=== PATIENT | female | born 1950 | race Caucasian/White ===

== ENCOUNTER 2020-08-20 09:25 | Day surgery (SDC) | payer MEDICARE, MEDICAID ==
[2020-08-17 15:10] LABS: ALBUMIN 3.3 g/dL (3.4-5.0); ANION GAP 3 mmol/L (5-15); CALCIUM 10.3 mg/dL (8.5-10.1); CHLORIDE 101 mmol/L (98-107)
[2020-08-17 15:14] LABS: ALANINE AMINOTRANSFERASE 46 U/L (12-78); ALKALINE PHOSPHATASE 77 U/L (45-117); BILIRUBIN,TOTAL 0.5 mg/dL (0.2-1.0); CREATININE 0.69 mg/dL (0.55-1.02); TOTAL PROTEIN 7.6 g/dL (6.4-8.2)
[~2020-08-20] VITALS: Ht 170.2 cm; Wt 62.7 kg
[~2020-08-20 09:25] MED LIST: AMAN100C7 MT; AMLO-150 PO; ATOR40TA78 PO; BUPIVACAINE/PF 0.25% ONE; CBD PO; CHOL10003 PO; DEXA1TAB5 PO; DIVA500T17 PO; DOCU100C33 PO; EPINEPHRINE 1 MG/ML, 1ML ONE; ERGO400T2 PO; GABA300C PO; INSU100V13 SC; INSU100V5 SQ-INSULIN; LEVE500T22 PO; LISI40TA9 PO; LISI5TAB7 PO; METF500T17 PO; METO25TA35 PO; MULT-658 PO; NEOMY/POLYMYXIN B GU IRR. 1 ML ONE; POLY17PO50 PO; PREBIOTIC FIBER PO; PYRI100L2 PO; SENNA; SITA100T PO; TIZA4TAB2 PO
[2020-08-20 10:17] LABS: BASOPHILS % (AUTO) 0 % (0-1); EOSINOPHILS % (AUTO) 0 % (1-7); LYMPHOCYTES % (AUTO) 19 % (22-44); MD NO; MEAN CORPUSCULAR HEMOGLOBIN 32.3 pg (27.0-34.8); MEAN CORPUSCULAR HGB CONC 33.9 g/dL (32.4-35.8); MEAN PLATELET VOLUME 7.2 fL (7.4-10.4); MONOCYTES % (AUTO) 12 % (2-9); NEUTROPHILS % (AUTO) 69 % (42-75); PLATELET COUNT 232 x10^3/uL (130-400); RED BLOOD COUNT 3.79 x10^6/uL (3.82-5.3); RED CELL DISTRIBUTION WIDTH 13.3 % (9.6-15.2)
[2020-08-20 10:35] VITALS: BP 112/73
[2020-08-20] MEDS ORDERED: CHLORHEXIDINE 15 ML UDC ONE (10:44)
[2020-08-20] MEDS ORDERED: LACTATED RINGERS 1,000 ML IV SCH (11:00)
[2020-08-20] MEDS ORDERED: CHLORHEXIDINE 15 ML UDC MM ONE (11:00)
[2020-08-20] MEDS ORDERED: MIDAZOLAM 1 MG/ML, 2ML ONE (11:21)
[2020-08-20] MEDS ORDERED: FENTANYL PF 100 MCG/2ML ONE (11:21)
[2020-08-20] MEDS ORDERED: DIAZEPAM 5 MG/ML, 2ML IVPush PRN (12:30)
[2020-08-20] MEDS ORDERED: KETOROLAC 30 MG/1 ML IV PRN (12:30)
[2020-08-20] MEDS ORDERED: HYDROmorphone 2 MG/ML, 1ML IVPush PRN (12:30)
[2020-08-20] MEDS ORDERED: hydrALAzine 20 MG/ML, 1ML IV PRN (12:30)
[2020-08-20] MEDS ORDERED: LABETALOL 5MG/ML, 20ML IV PRN (12:30)
[2020-08-20] MEDS ORDERED: FENTANYL PF 100 MCG/2ML IV PRN (12:30)
[2020-08-20] MEDS ORDERED: OXYcodone 5 MG/5 ML ORAL.SOL UDC PO PRN (12:30)
[2020-08-20] MEDS ORDERED: PROMETHAZINE 25 MG/ML, 1ML IV PRN (12:30)
[2020-08-20] MEDS ORDERED: ALBUTEROL SULFATE 2.5 MG/3 ML NPPB PRN (12:30)
[2020-08-20] MEDS ORDERED: MEPERIDINE/PF 25MG/0.5ML IVPush PRN (12:30)
[2020-08-20] MEDS ORDERED: ACETAMINOPHEN 325 MG TABLET PO PRN (12:30)
[2020-08-20] MEDS ORDERED: NEOSTIGMINE 1 MG/ML, 10ML ONE (12:51)
[2020-08-20] MEDS ORDERED: ROCURONIUM 10MG/ML,5ML ONE (12:51)
[2020-08-20] MEDS ORDERED: PROPOFOL 10 MG/ML, 20ML ONE (12:51)
[2020-08-20] MEDS ORDERED: DEXAMETHASONE 4 MG/ML, 1ML ONE (12:51)
[2020-08-20] MEDS ORDERED: SUCCINYLCHOLINE 20 MG/ML, 10ML ONE (12:51)
[2020-08-20] MEDS ORDERED: ONDANSETRON 2MG/ML, 2ML ONE (12:51)
[2020-08-20] MEDS ORDERED: GLYCOPYRROLATE 0.2MG/1ML, 5ML ONE (12:51)
[2020-08-20] MEDS ORDERED: CEFAZOLIN 1,000 MG ONE (12:51)
[2020-08-20] MEDS ORDERED: KETOROLAC 30 MG/1 ML ONE (13:38)
[2020-08-20] MEDS ORDERED: OXYcodone 5 MG/5 ML ORAL.SOL UDC ONE (13:39)
[2020-08-20] MEDS ORDERED: PROMETHAZINE 25 MG/ML, 1ML ONE (13:41)
== END 2020-08-20 16:35 | disposition home or self-care (01) ==
LOC: OUT 09:25
PROVIDERS: ATTEND Obstetrics & Gynecology Female Pelvic Medicine and Reconstructive Surgery
DX: N81.89 Other female genital prolapse (principal); N39.46 Mixed incontinence; N94.10 Unspecified dyspareunia; N81.11 Cystocele, midline; N81.6 Rectocele; N81.5 Vaginal enterocele; I10 Essential (primary) hypertension; E11.9 Type 2 diabetes mellitus without complications; I69.354 Hemiplegia and hemiparesis following cerebral infarction affecting left non-dominant side; F17.210 Nicotine dependence, cigarettes, uncomplicated; Z20.822 Contact with and (suspected) exposure to COVID-19; Z79.1 Long term (current) use of non-steroidal anti-inflammatories (NSAID); Z79.4 Long term (current) use of insulin; Z79.899 Other long term (current) drug therapy; Z90.49 Acquired absence of other specified parts of digestive tract; Z90.710 Acquired absence of both cervix and uterus; Z90.722 Acquired absence of ovaries, bilateral; Z98.890 Other specified postprocedural states
CPT/HCPCS: 36415; 57265; 57282; 57288; 80053; 85025; 93005; C1771; J0171; J0330; J0690; J1100; J1885; J2250; J2405; J2550; J2704; J2710; J3010; J7120; U0003

== ENCOUNTER 2020-09-09 11:47 | Emergency (ER) | payer MEDICARE, MEDICAID ==
[~2020-09-09] VITALS: Ht 170.2 cm; Wt 65.0 kg
[~2020-09-09 11:47] MED LIST changes: -BUPIVACAINE/PF 0.25% ONE; -EPINEPHRINE 1 MG/ML, 1ML ONE; -NEOMY/POLYMYXIN B GU IRR. 1 ML ONE
--- NOTE | 2020-09-09 12:00 | NUR ---
AUTOCAD: PT HAD EPISODE OF HAND AND LEG CRAMPING LASTING ABOUT 1 MINUTE. NO LOC. PT AWAKE AND ALERT. RESP EVEN AND UNLABORED, NADN.
[2020-09-09 12:39] LABS: BASOPHILS % (AUTO) 1 % (0-1); EOSINOPHILS % (AUTO) 2 % (1-7); LYMPHOCYTES % (AUTO) 28 % (22-44); MD NO; MEAN CORPUSCULAR HEMOGLOBIN 32.9 pg (27.0-34.8); MEAN CORPUSCULAR HGB CONC 34.5 g/dL (32.4-35.8); MEAN PLATELET VOLUME 7.4 fL (7.4-10.4); MONOCYTES % (AUTO) 8 % (2-9); NEUTROPHILS % (AUTO) 61 % (42-75); PLATELET COUNT 272 x10^3/uL (130-400); RED BLOOD COUNT 3.31 x10^6/uL (3.82-5.3)
[2020-09-09 12:48] LABS: ALBUMIN 3.2 g/dL (3.4-5.0); ANION GAP 4 mmol/L (5-15); CALCIUM 9.3 mg/dL (8.5-10.1); CHLORIDE 105 mmol/L (98-107)
--- NOTE | 2020-09-09 13:59 | NUR ---
PT RESTING IN [facility]. DAUGHTER BEDSIDE.
--- NOTE | 2020-09-09 14:22 | NUR ---
PT TO CT VIA MARIE, FAMILY MEMBER AT BEDSIDE.
--- NOTE | 2020-09-09 14:29 | NUR ---
PT BACK FROM CT
--- NOTE | 2020-09-09 14:48 | NUR ---
pt resting in bed watching Larry with daughter at bedside
[2020-09-09] MEDS ORDERED: LEVETIRACETAM 1,000 MG in SODIUM CHLORIDE 0.9% 100 ML IV ONE (15:30)
--- NOTE | 2020-09-09 15:55 | NUR ---
Pt medicated per MAR, positioned for comfort, denies other needs.
[2020-09-09 16:40] VITALS: BP 121/56
--- NOTE | 2020-09-09 16:40 | NUR ---
Pt assisted with dressing by daughter and out of unit via wheelchair
== END 2020-09-09 16:43 | disposition home or self-care (01) ==
LOC: ED 13:03
DX: G40.109 Localization-related (focal) (partial) symptomatic epilepsy and epileptic syndromes with simple partial seizures, not intractable, without status epilepticus (principal); R51.9 Headache, unspecified; I10 Essential (primary) hypertension; E11.9 Type 2 diabetes mellitus without complications; Z86.73 Personal history of transient ischemic attack (TIA), and cerebral infarction without residual deficits
CPT/HCPCS: 36415; 70450; 80048; 82040; 85025; 96365; 99285; J1953